=== PATIENT | male | born 2000 | race Caucasian/White ===

== ENCOUNTER 2022-12-05 02:14 | Emergency (ER) | payer SELFPAY ==
[~2022-12-05] VITALS: Ht 177.8 cm; Wt 79.5 kg
[2022-12-05] MEDS ORDERED: IBUP-2029 MT (05:47)
[2022-12-05] MEDS ORDERED: AMOX-494 MT (05:47)
[2022-12-05 07:49] VITALS: BP 108/54
== END 2022-12-05 07:54 | disposition home or self-care (01) ==
LOC: ER 02:14
DX: H66.91 Otitis media, unspecified, right ear (principal)
CPT/HCPCS: 99283